=== PATIENT | female | born 1980 | race African-American/Black ===

== ENCOUNTER 2024-07-02 08:38 | Outpatient (CLI) | payer OTHER, MEDICAID | END 2024-07-02 08:39 | disposition home or self-care (01) | LOC: CSHSLEEP 08:38 | PROVIDERS: ATTEND Family Medicine | DX: G47.33 Obstructive sleep apnea (adult) (pediatric) (principal); R06.82 Tachypnea, not elsewhere classified | CPT/HCPCS: 95811 ==